=== PATIENT | female | born 1975 | race Two or more races ===

== ENCOUNTER 2022-10-02 17:57 | Emergency (ER) | payer OTHER ==
[~2022-10-02] VITALS: Ht 157.5 cm; Wt 59.0 kg
== END 2022-10-02 21:42 | disposition home or self-care (01) ==
LOC: ER 17:57
DX: T78.1XXA Other adverse food reactions, not elsewhere classified, initial encounter (principal); X58.XXXA Exposure to other specified factors, initial encounter; Z91.018 Allergy to other foods

== ENCOUNTER 2023-04-27 07:53 | Outpatient (CLI) | payer OTHER | END 2023-04-27 08:08 | disposition home or self-care (01) | LOC: MRI 07:53 | PROVIDERS: ATTEND Obstetrics & Gynecology Gynecologic Oncology | DX: D25.9 Leiomyoma of uterus, unspecified (principal) | CPT/HCPCS: 72197; 74183 ==